=== PATIENT | male | born 1930 | race Caucasian/White ===

== ENCOUNTER 2016-09-05 10:43 | Inpatient (IN) | payer MEDICARE, BC ==
--- NOTE | ~2016-09-05 | IDS ---
Interim Discharge Summary [facility] [address] [place]. [address] NAME: REY MAIER : 32 STATUS : ADM IN [facility]#: [id number] AGE: 86 ADM/REG DATE : 09/05/16 MR#: [id number] REPORT SERV DATE: 09/10/16 DICTATED BY: KAITLIN GRANDA DATE: 09/10/16 REPORT STATUS : Draft TRANSCRIBED BY: MODKatherin DATE: 09/10/16 ADMISSION DATE: 09/05/2016 DISCHARGE DATE: REASON FOR ADMISSION: Generalized weakness and atrial fibrillation with RVR. HISTORY OF PRESENT ILLNESS: Please refer to Dr. Gutierrez's history and physical dated 09/05 for complete details regarding the patient's admission. In brief, the patient was admitted to the hospitalist service for management of his atrial fibrillation with RVR and generalized weakness and acute kidney injury. HOSPITAL COURSE: Several issues were addressed. 1. Atrial fibrillation with RVR. The patient presented with atrial fibrillation with RVR. Dr. Fernandez who was the patient's outpatient meat inspector was consulted and had Dr. Phillips perform a PAULINE cardioversion the following day. The PAULINE showed no evidence of left atrial thrombus, EF of 50%. 200 joules of synchronized cardioversion restored and that was successful cardioversion. The following day, the patient went back into atrial fibrillation with a mildly elevated heart rate and was started on IV amiodarone drip per Dr. Fernandez and he continues to be on IV amiodarone. He is currently in sinus rhythm. 2. Strep mitis bacteremia, likely secondary to endocarditis. The patient had presented with a normal procalcitonin, a normal white blood cell count, no fever, and surprisingly had positive blood cultures that were obtained from the ER. The preliminary blood culture came back after 24 hours which was quite surprising as the patient did not exhibit any signs or symptoms of infection. He was monitored until the blood cultures came back as being strep. Microbiology felt that this was secondary to Strep viridans. We finally got the final culture on the or . Given the findings of Strep viridans, I was concerned for a cardiac versus a GI source and discussing with Dr. Fernandez when the patient had a PAULINE cardioversion, there was no obvious sign for endocarditis. However, it was something that was not anticipated being discovered during the cardioversion. I repeated the CT scan with IV contrast as the patient had this vague abdominal pain. The CT scan with IV contrast did not demonstrate any GI infection for the strep bacteremia. The patient was started on vancomycin and Rocephin on day 2, when the prelim came back as being positive for gram positive cocci. Given his Strep mitis bacteremia, Dr. Chacon was consulted to help identify the source. The patient had a repeated PAULINE done at the time of this dictation on 09/10/2016. On careful assessment of the mitral prosthesis, there appears to be 0.6 x 0.6 cm mobile echodensity along the anterior aspect of the struts possibly concerning for an atypical vegetation. No evidence of an abscess in the aorta mitral continuity or periaortic abscess either. Awaiting for Dr. Chacon's final recommendations. If he does not feel like this is the source, then we will need to consider scanning his back as the patient has had some chronic back pain, but I suspect that this is the source of the infection and the patient does have endocarditis causing his bacteremia. If that is the case, he will likely need to have long-term IV antibiotics. He already has a PICC line and he is on approximately day 4 of vancomycin and Rocephin. 3. Acute hypoxic respiratory failure. The patient presented to the hospital without the Interim Discharge Summary [address] [address] NAME: REY MAIER : 32 STATUS : ADM IN [facility]#: [id number] AGE: 86 ADM/REG DATE : 09/05/16 MR#: [id number] REPORT SERV DATE: 09/10/16 DICTATED BY: KAITLIN GRANDA DATE: 09/10/16 REPORT STATUS : Draft TRANSCRIBED BY: MODL DATE: 09/10/16 need of oxygen. After his cardioversion on the second day, he was brought back to the room with about 2 L of oxygen status post procedure. He had a pretty significant upper airway congestion with cough. That night, the patient went into respiratory distress and was placed on 15 L of nasal cannula and alternating between that and BiPAP. ABG on the showed a pO2 of 63 on 100% FiO2. Repeat chest x-ray was obtained on the which showed increased right basilar consolidation what appears to be some new elevation of the right hemidiaphragm. However, it was not significantly different from the chest x-ray done in the emergency room. His BNP had actually improved and it did not feel like at the time that his hypoxic failure was likely secondary to volume overload, but maybe possibly secondary to aspiration. His cough had improved throughout the hospitalization and his hypoxic failure has also improved. He is currently now weaned down to about 4 L of nasal cannula at which he is saturating 90%. Torsemide was added on the third day of admission after he went into respiratory distress. He is tolerating that medication well. We will obtain a CT scan of his chest without contrast to evaluate any pleural effusion or possible aspiration as the patient still is requiring significant oxygen. 4. Generalized weakness. The patient had a history of breaking his ankle a while ago and he did occupational therapy very well at [facility]. He was discharged home with home PT and had been doing fairly well with his walker, but has had this generalized weakness for the past couple weeks and becoming more debilitated, which could be secondary to his back pain versus his bacteremia. Physical Therapy had evaluated the patient and recommended rehab. [facility] has been re-contacted as this is the patient's preference and they are continuing to follow. 5. Chronic back pain. The patient has had significant pain for which he was on low-dose hydrocodone at home. He has not had any significant imaging specifically for his back. However, the CT scan of his abdomen shows some compression deformity of the superior endplate of L2 which is stable. May need to consider further imaging for spine specifically if Dr. Chacon does not feel like this is endocarditis as this could be a potential source of infection. He does have a pacemaker and it is unclear if it is MRI compatible. His pacemaker was placed on 01/05/[address] Jose Serrano and it is a [employer] model VEDR01 with serial #[id number]. 6. The patient is a full code. INTERIM DIAGNOSES: Acute hypoxic respiratory failure, Streptococcus mitis bacteremia possibly secondary to endocarditis, atrial fibrillation with rapid ventricular response, chronic back pain, generalized weakness, cough, benign prostatic hypertrophy. PROCEDURES: Include consultation with Dr. Antonio Chacon, consultation with Dr. Fernandez, PAULINE cardioversion, repeat PAULINE looking for endocarditis, chest x-ray, CT scan of the abdomen and pelvis with IV contrast, CT scan of the abdomen and pelvis without contrast, CT scan of the brain without contrast. DISPOSITION: The patient is being discharged to a rehab facility with possible long-term IV antibiotics in the next couple of days. The patient will need to have rate controlled with oral medications and off the IV immune drip which Dr. Fernandez is managing. Interim Discharge Summary [place] [place] [address] [place]. [address] NAME: REY MAIER : 32 STATUS : ADM IN PAT#: [id number] AGE: 86 ADM/REG DATE : 09/05/16 MR#: [id number] REPORT SERV DATE: 09/10/16 DICTATED BY: KAITLIN GRANDA DATE: 09/10/16 REPORT STATUS : Draft TRANSCRIBED BY: VICKI DATE: 09/10/16 NIRALI/VICKI Kaitlin Granda MD / [id number] CC: MD Sofya Berger, Ino Fernandez MD
--- NOTE | ~2016-09-05 | DS ---
Discharge Summary [facility] [address] [place]. [address] NAME: REY MAIER : 32 STATUS : DIS IN PAT#: [id number] AGE: 86 ADM/REG DATE : 09/05/16 MR#: [id number] REPORT SERV DATE: 09/20/16 DICTATED BY: ABNER JIMENEZ DATE: 09/19/16 REPORT STATUS : Draft TRANSCRIBED BY: VICKI DATE: 09/19/16 ADMISSION DATE: 09/05/2016 DISCHARGE DATE: 09/18/2016 CONSULT: 1. Dr. Chacon for ID. 2. Dr. Deangelo Fernandez for Cardiology. REASON FOR ADMISSION: Generalized weakness. Please refer to admission note by Dr. Gutierrez on 09/05/2016. Please refer to interim discharge by Dr. Giuliano Granda on 09/10/2014. The patient was initially admitted for generalized weakness. HISTORY OF HOSPITAL STAY: An 86-year-old white male with past medical history of hypertension; coronary artery disease; chronic atrial fibrillation, status post cardioversion/ablation with pacemaker; history of mitral valve repair, presenting with generalized weakness. Initially, the patient was found to be in atrial fibrillation with RVR. Cardiology was consulted and the patient was cardioverted. Unfortunately, there was a questionable endocarditis. Infectious Disease was called in. The patient was growing Strep mitis bacteremia, possible cause of the endocarditis. Nonetheless, the patient was suffering also from acute hypoxic respiratory failure. The patient required extensive suction. Unfortunately, the patient was having not only issues from a respiratory standpoint, but at the same time, the patient was having issues of wanting to go home. Discussions revolved around palliative care since the patient was deteriorating quite rapidly with frequent oxygen desats when the patient could not get rid of his oral secretions. Eventually, the family was agreeable to hospice and as the preparation was underway to get the patient home with hospice, the patient . DIAGNOSES UPON DISCHARGE: 1. Generalized weakness secondary to atrial fibrillation with rapid ventricular response. 2. Atrial fibrillation with rapid ventricular response. 3. Bacteremia secondary to Streptococcus mitis. 4. Questionable endocarditis secondary to Streptococcus mitis bacteremia. 5. Acute hypoxic respiratory failure. 6. Hypertension. 7. Coronary artery disease. GUEVARA/VICKI Abner Jimenez MD Discharge Summary [address] [place]. [address] NAME: REY MAIER : 32 STATUS : DIS IN PAT#: [id number] AGE: 86 ADM/REG DATE : 09/05/16 MR#: [id number] REPORT SERV DATE: 09/20/16 DICTATED BY: ABNER JIMENEZ DATE: 09/19/16 REPORT STATUS : Draft TRANSCRIBED BY: SAMANTHAL DATE: 09/19/16 / [id number] CC: MD Ino Calle M.D.
--- NOTE | ~2016-09-05 | HP ---
History And Physical [place] [id number] [facility] [place]. [address] NAME: REY MAIER : 32 STATUS : ADM IN [facility]#: [id number] AGE: 86 ADM/REG DATE : 09/05/16 MR#: [id number] REPORT SERV DATE: 09/05/16 DICTATED BY: TOM LOVE DATE: 09/05/16 REPORT STATUS : Draft TRANSCRIBED BY: VICKI DATE: 09/05/16 DATE OF ADMISSION: 09/05/2016 CHIEF COMPLAINT: Generalized weakness. HISTORY OF PRESENT ILLNESS: This is an 86-year-old gentleman with medical history significant for a chronic atrial fibrillation status post cardioversion and ablation with a pacemaker placement, coronary artery disease, mitral valve repair on chronic anticoagulation with warfarin, chronic back pain, who presented to the hospital with complaints of generalized weakness. The patient reports progressive generalized weakness, which started several months ago. He reported that he had a ground-level fall in May and sustained a left ankle malleolus fracture. He was managed conservatively with a CAM walker boot and was subsequently discharged to subacute rehab. The patient reported that he completed subacute rehab and was subsequently discharged home. He was doing fairly well, however, noticed progressive worsening generalized weakness over the past 2 months. There is associated significant reduced appetite, reduced p.o. intake as well as significant weight loss, which was attributed to decreased p.o. intake. Family members noted that the patient has been having frequent urination in the last two weeks. There is associated lower abdominal pain, most severe in the low right abdominal quadrant. There is also associated urgency. There is also associated low-grade fevers by the family, the patient's temperature has been running in the low in 99.9 to 100 at home prior to presentation. Family members also noted that the patient has had progressive worsening distended abdomen without any significant abdominal pain. Per the family members prior to presentation this morning, the patient was in the bathroom having a bowel movement where they noted that the patient was significantly weak and was unable to get on his walker, and hence the family members decided to bring him to the ER for further evaluation. On arrival at the ER, the patient was noted to be in AFib with RVR, was given an IV metoprolol 5 mg, heart rate went down from 130s to the low 100s, and remained stable in the 100s. There is no reported history of loss of consciousness. No associated presyncope or syncopal episodes. No aphasia. No reported on memory loss or unusual or weakness of any part of the extremities. PAST MEDICAL HISTORY: 1. Hypertension. 2. Coronary artery disease. 3. Chronic atrial fibrillation status post cardioversion and ablation with pacemaker placement. 4. History of mitral valve repair. PAST SURGICAL HISTORY: 1. Mitral valve repair surgery in 01/01/2013. Also noted to have a left-sided maze procedure, primary closure of a permanent foramen ovale. 2. Dual-chamber pacemaker. History And Physical [address] [place]. [address] NAME: REY MAIER : 32 STATUS : ADM IN [facility]#: [id number] AGE: 86 ADM/REG DATE : 09/05/16 MR#: [id number] REPORT SERV DATE: 09/05/16 DICTATED BY: TOM LOVE DATE: 09/05/16 REPORT STATUS : Draft TRANSCRIBED BY: VICKI DATE: 09/05/16 SOCIAL HISTORY: Denies smoking cigarettes and drinking alcohol or illicit drug use. The patient currently lives with his and they have been for 64 years. FAMILY HISTORY: Mother at the age of 92 with pneumonia. Father had lung cancer, but of congestive heart failure. There is history of a senile dementia and colon cancer in the family. ALLERGIES: ALLERGY HISTORY: REPORTED ALLERGY TO PENICILLIN. REVIEW OF SYSTEMS: NEURO: Denies headaches and seizure-like activities. HEENT: Denies any blurred vision, double visions. Denies any problem with smells, denies any anosmia, denies any difficulty swallowing food. RESPIRATORY: Denies any shortness of breath, wheezing, or cough. CARDIOVASCULAR: Denies any chest pain, presyncopal or syncopal episodes. ABDOMEN: Reports some abdominal distention with some low abdominal pain as described in the HPI. No diarrhea. No constipation. No nausea. No vomiting. No jaundice. : Reports urinary frequency as described in the HPI. No hematuria. ENDOCRINE: Reports cold intolerance, but denies any excessive weight gain. Denies any depressed mood. Denies any hair loss. LYMPHATIC SYSTEM: Denies any lymphadenopathy. HEMATOLOGY: Denies any history of bleeding disorders, easy bruises, or bleeding from any orifices. SKIN: Appears dry. Denies any skin rash or any petechiae. MUSCULOSKELETAL: Reports positive for chronic back pain and knee pains, but denies pain in any other joints. PHYSICAL EXAMINATION: VITAL SIGNS: On presentation: Blood pressure was 123/63 mmHg, pulse was 125. At the time of my evaluation, repeat blood pressure was 120/60, pulse rate was 100 beats per minute, saturating 96% on room air, respiratory rate 15. GENERAL: Appears lethargic and continues to fall asleep during my interview, able to speak in full sentences. Do not appear to be in any distress. HEENT: Normocephalic, atraumatic. Extraocular muscles intact. Pupils equal, round, and reactive, not pale, anicteric. Oral mucosa dry. NECK: Supple. No palpably enlarged thyroid gland. No JVD. CHEST: Equal expansion. No area of tenderness. Pacemaker in place. LUNGS: Clear to auscultation bilaterally. No rhonchi, no crackles. ABDOMEN: Bowel sound normoactive, distended with prominent anterior veins, not in any particular distribution. There is tenderness in the lower abdominal quadrant, most severe in the right lower abdominal quadrant. No palpably enlarged organomegaly. LOWER EXTREMITIES: Noted to have peripheral edema all the way to the ankle, +1 pulses palpable. NEURO: Awake, alert, but very sleepy, oriented x3. Strength 3/5 in lower extremities, 5/5 in upper extremities. Does continue normal reflexes. History And Physical [address] [address] NAME: REY MAIER : 32 STATUS : ADM IN [facility]#: [id number] AGE: 86 ADM/REG DATE : 09/05/16 MR#: [id number] REPORT SERV DATE: 09/05/16 DICTATED BY: TOM LOVE DATE: 09/05/16 REPORT STATUS : Draft TRANSCRIBED BY: VICKI DATE: 09/05/16 LABORATORY DATA: Chemistry: Sodium is 132, potassium 4.0, chloride 93, bicarb 28, creatinine 1.38, BUN 32, glucose 174, calcium 9.1, magnesium 2.1. Troponin less than 0.03. TSH 1.510. Hematology: WBC 9.1, hemoglobin 12.7, hematocrit 37.1, MCV 90.9, platelet 188. PT 26.6, INR 2.5. Chest x-ray. Impression: 1. Mild venous congestion with more prominent venous congestion and interstitial edema seen on prior exam, improved bibasilar atelectasis with small left pleural effusion. 2. Status post CABG, heart valve replacement, and pacemaker placement. SUMMARY: This is an 86-year-old gentleman with medical history of atrial fibrillation status post maze procedure with an ablation, with a dual-chamber pacemaker in place who presented to the hospital with complaints of generalized weakness, found to have AFib with RVR. ASSESSMENT: 1. Generalized weakness. 2. Atrial fibrillation with rapid ventricular response. 3. Acute kidney injury. 4. Abdominal distension/abdominal tenderness. 5. Coronary artery disease. 6. Hyponatremia. 7. Dehydration. PLAN: 1. Generalized weakness. Definitive etiology of generalize weakness unclear at this time. Possible differential includes physical deconditioning following ankle fracture. It is noted that per the patient's report that ankle fractures are completely healed after he followed up with orthopedic surgeon. The patient will definitely require some physical rehabilitation at the time of discharge. At the time of discharge, the patient wants to undergo physical rehabilitation at [facility]. I will contact case assistant and social media campaign manager at this time to help with the paperwork to help place the patient at rehab. In order to identify a definitive etiology for the patient's generalized weakness, we will order urinalysis to rule out a UTI. We will also consider a CT of the abdomen given abdominal distention, and also given the patient has had some history of falls at home, although no history of loss of consciousness, we will order a CT of the head, to rule out subdural hematoma. 2. Atrial fibrillation with RVR. It was noted that on presentation to the ER, the patient's EKG showed atrial fibrillation with RVR. The patient received IV metoprolol with good response. The patient to be restarted back on his home dose of diltiazem BRAXTON and will continue to monitor the patient's heart rate with cardiac telemonitor. Also, the patient's INR is currently therapeutic at 2.5, we will continue the patient's home dose of anticoagulation. I will also consult the patient's primary commercial horticulture instructor to explain the sister to assist in the management of the patient's AFib with RVR. 3. Acute kidney injury. The patient's creatinine is 1.38 from a baseline of 0.9, likely related to some form of reduced p.o. intake as well as some from of dehydration, and also possibly the effect of diuretics, hydrochlorothiazide. The patient is changed to [facility] [address] [address] NAME: REY MAIER : 32 STATUS : ADM IN PAT#: [id number] AGE: 86 ADM/REG DATE : 09/05/16 MR#: [id number] REPORT SERV DATE: 09/05/16 DICTATED BY: TOM LOVE DATE: 09/05/16 REPORT STATUS : Draft TRANSCRIBED BY: VICKI DATE: 09/05/16 IV fluids of not more than 500 mL. Continue to monitor the patient's respiratory status and volume status closely. 4. Abdominal distention with abdominal pain. I will order an abdominopelvic CT to further elucidate etiology of abdominal pain and distention. 5. Hyponatremia likely related to hydrochlorothiazide. I will discontinue hydrochlorothiazide at this time. We will continue to monitor after gentle IV fluid resuscitation. 6. Coronary artery disease. The patient denies any chest pain at this point, we will continue to monitor closely. 7. Admission status, inpatient. Code status: Full code. DVT prophylaxis contraindicated. The patient is currently anticoagulated. 8. Consults: Primary commercial horticulture instructor from [employer]. LISA/VICKI Tom Love MD / [id number] CC: MD YANIQUE Berger DAVID K
--- NOTE | ~2016-09-05 | OP ---
Record Of Operation [facility] [address] [place]. [address] NAME: RYE MAIER : 32 STATUS : ADM IN [facility]#: [id number] AGE: 86 ADM/REG DATE : 09/05/16 MR#: [id number] REPORT SERV DATE: 09/10/16 DICTATED BY: DEANGELO HODGE DATE: 09/10/16 REPORT STATUS : Draft TRANSCRIBED BY: MODKatherin DATE: 09/10/16 DATE OF PROCEDURE: 09/10/2016 REASON FOR STUDY: Rule out endocarditis. PROCEDURE DESCRIPTION: All questions were answered and informed consent was obtained. Anesthesia administered sedation. Upon successful sedation, the transesophageal probe was inserted without complication. Salient echocardiographic windows were obtained, findings are below. There were no complications from the study. ECHOCARDIOGRAPHIC FINDINGS: 1. Borderline left ventricular systolic function with an estimated ejection fraction of approximately 50%. 2. Mildly enlarged right ventricle with normal systolic function. 3. Moderate left atrial enlargement. 4. Mild tricuspid regurgitation on color Doppler assessment. 5. Permanent pacemaker leads noted in the right atrium and the right ventricle, without vegetation. 6. Chiari network (normal variant) noted in the right atrium. 7. Status post mitral bioprosthesis implantation, which is well seated. However, on careful assessment of the mitral prosthesis, there appears to be a 0.6 x 0.6 cm mobile echodensity along the anterior aspect of the struts, possibly concerning for an atypical vegetation. There was no evidence of an abscess in the aortomitral continuity or periaortic abscess either. 8. Color Doppler assessment demonstrates mild prosthesis regurgitation as well as mild paravalvular regurgitation along the anterior aspect of the prosthetic valve. Again, the valve itself appears to be well seated in general. 9. No vegetation noted on the tricuspid valve, aortic valve, or pulmonic valve in visualized windows. VR/MODL Deangelo Hodge MD / [id number] CC: MD Ino Berger M.D.
--- NOTE | ~2016-09-05 | OP ---
Record Of Operation [facility] [place]. [address] NAME: REY MAIER : 32 STATUS : ADM IN [facility]#: [id number] AGE: 86 ADM/REG DATE : 09/05/16 MR#: [id number] REPORT SERV DATE: 09/12/16 DICTATED BY: TACOS POLLACK DATE: 09/12/16 REPORT STATUS : Draft TRANSCRIBED BY: MODL DATE: 09/12/16 DATE OF PROCEDURE: PROCEDURE PERFORMED: Oroendotracheal intubation. INDICATIONS: For impending respiratory failure with increased work of breathing, respiratory rate of 50. The patient received 10 mL of IV propofol. Using GlideScope #4 blade, we were able to directly visualize the vocal cords, which were midline with some dried white secretions. We advanced a size 8 oroendotracheal tube without difficulty and secured in place. There was good color change on an end-tidal CO2 indicator. Good auscultation of breath sounds bilaterally. Good fogging with bagging and chest radiograph is pending. IMPRESSION: Successful oroendotracheal intubation for respiratory failure. BRIANDA/VICKI aTcos Pollack M.D. / [id number] CC: Bryan Turner M.D.
--- NOTE | ~2016-09-05 | CN ---
Consultation Report [facility] [address] [place]. [address] NAME: REY AVINA : 34 STATUS : ADM IN [facility]#: [id number] AGE: 86 ADM/REG DATE : 09/05/16 MR#: [id number] REPORT SERV DATE: 09/05/16 DICTATED BY: DEANGELO HODGE DATE: 09/05/16 REPORT STATUS : Draft TRANSCRIBED BY: MODL DATE: 09/05/16 CONSULTATION DATE OF CONSULTATION: 09/05/2016 REASON FOR CONSULTATION: Atrial fibrillation with RVR. HISTORY OF PRESENT ILLNESS: Mr. Avina is an 86-year-old gentleman, well known to me with a history of paroxysmal atrial fibrillation/atrial flutter, on Juntoven, status post multiple cardioversions in the past; sick sinus syndrome, status post permanent pacemaker; CAD, status post one-vessel CABG (2012); hypertension; hyperlipidemia; and borderline LV function, EF 50%, who presents to [facility] today with nonspecified complaints of generalized weakness that has been progressive over the past several weeks in the setting of decreased p.o. intake. He is declining to provide any history at this time; therefore, all history is provided by family at the bedside. They state that he has been having progressive weakness and difficulty transferring over the past several weeks without clear trigger. He has not had any chest pains, pressures, dizziness, or loss of consciousness that they are aware of. He has been taking his medicines without any issue. He has had bouts of urinary frequency that have been intermittent over the past several weeks as well. ALLERGIES: PENICILLIN AND NEOMYCIN. FAMILY HISTORY: Negative for premature cardiovascular disease. SOCIAL HISTORY: Denies actively drinking alcohol, smoking, or doing drugs. PAST MEDICAL HISTORY: As above. HOME MEDICATIONS: 1. Tylenol. 2. Dilt ER 180 mg p.o. daily. 3. Flonase. 4. HCTZ. 5. Multivitamin. 6. Potassium. 7. Coumadin. 8. Flomax. PHYSICAL EXAMINATION: VITAL SIGNS: Blood pressure 123/63, pulse 110, O2 of 96% on nasal cannula. GENERAL: Disinterested/frustrated, otherwise no acute distress and well developed, well nourished. NEURO: Awake, alert and oriented x3; no focal deficits, appropriate mood. HEENT: Moist mucous membranes, anicteric sclerae, no nasal discharge. Consultation Report [facility] [address] [place]. [address] NAME: REY AVINA : 32 STATUS : ADM IN PAT#: [id number] AGE: 86 ADM/REG DATE : 09/05/16 MR#: [id number] REPORT SERV DATE: 09/05/16 DICTATED BY: DEANGELO HODGE DATE: 09/05/16 REPORT STATUS : Draft TRANSCRIBED BY: VICKI DATE: 09/05/16 NECK: No JVD, no carotid bruit. LUNGS: Clear to auscultation bilaterally, no wheezes, rales or rhonchi. CARDIAC: Irregularly irregular. A 2/6 systolic murmur at the left sternal border. No rubs or gallops. ABD: Soft, non-tender, non-distended, no rebound or guarding. EXTREMITIES: 1 to 2+ pitting edema in his lower extremities bilaterally, warm otherwise with diminished pulses in his radial region bilaterally. SKIN: Warm, dry and intact; no rash. PERTINENT TEST FINDINGS: Chest x-ray with improved interstitial edema when compared to May chest x-ray. Potassium 4.0, creatinine 1.4. Troponin 0.03. TSH 1.5. White blood cell count 9.9, hemoglobin 12.7. EKG with atrial fibrillation with RVR. Telemetry, atrial fibrillation with RVR in the 110s. IMPRESSION AND PLAN: Mr. Avina is an 86-year-old gentleman with an established history of atrial arrhythmias (atrial fibrillation and atrial flutter), status post multiple cardioversions; sick sinus syndrome, status post pacemaker; and coronary artery disease, status post one-vessel CABG, who presents to [facility] with nonspecified symptoms of unclear etiology, incidentally found to have mild atrial fibrillation with rapid ventricular response. I recommend that we continue his Jantoven and work up his nonspecified symptoms as per the primary team. I will start him on the amiodarone loading dose of 400 mg p.o. t.i.d. for additional suppressive effect going forward given his recurrent arrhythmias. We will schedule him for a PAULINE and cardioversion tomorrow morning given that I am uncertain as to whether he has been on uninterrupted anticoagulation for the past four to six weeks. I do not believe that this is the primary reason for his progressive symptoms over the past many weeks, and it will be important for the primary team to work him up for other noncardiac causes. VR/MODL Deangelo Hodge MD / [id number] CC: MD Ino Berger M.D.
--- NOTE | ~2016-09-05 | OP ---
Record Of Operation [facility] [address] [place]. [address] NAME: REY MAIER : 34 STATUS : ADM IN PAT#: [id number] AGE: 86 ADM/REG DATE : 09/05/16 MR#: [id number] REPORT SERV DATE: 09/06/16 DICTATED BY: DAGOBERTO ALAN DATE: 09/06/16 REPORT STATUS : Draft TRANSCRIBED BY: VICKI DATE: 09/06/16 DATE OF PROCEDURE: PAULINE-GUIDED CARDIOVERSION This is an 86-year-old gentleman with failure to thrive, shortness of breath, and atrial fibrillation who has been on chronic anticoagulation with Coumadin. His appendage has been ligated during bypass surgery in the past. He is also status post mitral valve repair. His INR today was 3.3. I have been asked to do PAULINE-guided cardioversion by Dr. Fernandez. Risks and benefits explained to the patient. He agreed to proceed. He was sedated with propofol per Anesthesia. He was intubated without difficulties. No complications. Due to transient hypotension, he was given Germain-Synephrine during procedure by anesthesiologist. The patient recovered well including blood pressure. FINDINGS: 1. No evidence of left atrial thrombus. There is spontaneous echo contrast noted in left atrium, however. The left atrial appendage was poorly visualized but has been surgically ligated during prior bypass surgery. 2. Moderate left atrial enlargement. 3. Normal LV size with normal systolic function. Estimated ejection fraction 50%. 4. Normal RV size and systolic function. 5. Mitral valve status post repair with some mildly restricted leaflet motion opening. Mild residual mitral valve regurgitation noted. 6. Tricuspid opens adequately. There is mild to moderate tricuspid valve regurgitation along the pacemaker wire. Grossly normal pulmonic valve. 7. Aortic valve is sclerotic, tricuspid with trace regurgitation. 8. 200 joules of synchronized cardioversion restored. Normal sinus rhythm. The patient went to AV paced rhythm. Findings were confirmed with the [employer] rep. The patient recovered well. CONCLUSION: Successful PAULINE guided cardioversion from atrial fibrillation to normal sinus rhythm. DEBBIE/VICKI Dagoberto Alan M.D. / [id number] CC: MD Ino Berger M.D.
--- NOTE | ~2016-09-05 | CN ---
Consultation Report [facility] [address] [place]. [address] NAME: REY MAIER : 32 STATUS : ADM IN [facility]#: [id number] AGE: 86 ADM/REG DATE : 09/05/16 MR#: [id number] REPORT SERV DATE: 09/09/16 DICTATED BY: MARSHA CHACON DATE: 09/09/16 REPORT STATUS : Draft TRANSCRIBED BY: MODL DATE: 09/09/16 INFECTIOUS DISEASE CONSULTATION DATE OF CONSULTATION: 09/09/2016 REASON FOR CONSULTATION: Positive blood cultures. HISTORY OF PRESENT ILLNESS: This is an 86-year-old man with a past medical history notable for atrial fibrillation, coronary artery disease, sick sinus syndrome for which he has a permanent pacemaker, and mitral valve repair at the time of his coronary artery bypass graft surgery in 2012. The patient suffered a left ankle fracture in May and he was treated with a nonweightbearing boot for eight weeks. He was in the hospital here in May and then transferred to [facility] for rehab and then went home on 06/20. Over the past couple of months since then, he has just kind a not been doing as well in general. He has had generalized weakness and poor appetite. He has also developed a new low back pain which caused him to sleep in a recliner. On 09/03/2016, he was found to have a temperature of 99.2, and the following day, it was 99.6, the next morning his temperature was 99.9, and for all these reasons, he presented to the emergency department at [facility] on the morning of 09/05/2016 and was found to be in atrial fibrillation with rapid ventricular response/rapid ventricular rate. His white blood cell count was 9.9, and his temperatures were initially normal here in the hospital. His initial procalcitonin was less than 0.05, but repeat later in the day was 0.23. The patient underwent a workup which included blood cultures, negative urinalysis, negative chest x-ray, and a CT scan of the brain without IV contrast which showed no acute findings. A CT scan of the abdomen and pelvis was also done without IV contrast because of some complaints of abdominal distention and pain, and this showed mild diverticulosis without diverticulitis and a minor 10% to 15% loss of the height of the superior L2 vertebra compared to 06/02/2016 CT scan. The patient the following day underwent cardioversion which included transesophageal echo done by Dr. Phillips. The patient was successfully cardioverted into sinus rhythm. The PAULINE report is reviewed. No valvular vegetations were noted. There was mild mitral valve regurgitation and [id number] tricuspid regurgitation along the pacemaker wire. The aortic valve was sclerotic and tricuspid with trace regurgitation. The next day, the patient spiked the fever to 103 and developed bandemia and respiratory distress such that he had to be placed on BiPAP. Repeat CT scan of the abdomen and pelvis in the lung bases confirmed new right-sided consolidation changes, and the patient's blood cultures also returned positive from admission for streptococci. He was started on vancomycin and ceftriaxone. Since then, his respiratory status has improved over the past 48 hours. He is on nasal cannula oxygen now and breathing better. He also has defervesced. His bandemia has resolved. His chief complaint continues to be his low back pain along with a sensation of urinary urgency without evidence of significant postvoid residuals I believe on bedside scanning. The patient also does have some shortness of breath although not much in the way of cough. The patient denies any recent other infections. He specifically denies any dental problems, skin, or soft tissue infections. Consultation Report [place] [id number] [facility] [place]. [address] NAME: REY MAIER : 34 STATUS : ADM IN [facility]#: [id number] AGE: 86 ADM/REG DATE : 09/05/16 MR#: [id number] REPORT SERV DATE: 09/09/16 DICTATED BY: MARSHA CHACON DATE: 09/09/16 REPORT STATUS : Draft TRANSCRIBED BY: VICKI DATE: 09/09/16 PAST MEDICAL HISTORY: As outlined above. In addition, he has a history of hyperlipidemia. The mitral valve repair in 12/2012 was done because of severe mitral regurgitation. This also included a left-sided maze procedure and primary closure of a patent foramen ovale. He has also had tonsillectomy and bilateral inguinal hernia repair and cataract surgery. ALLERGIES: PENICILLIN CAUSES A RASH. HE ALSO CANNOT TAKE NEOMYCIN, AND HE IS INTOLERANT DILTIAZEM. PRESENT MEDICATIONS: In addition to vancomycin and ceftriaxone include Cardizem CD, folic acid, multivitamins, Flomax, Demadex, Coumadin, and amiodarone. SOCIAL HISTORY: The patient quit smoking over 30 years ago. He lives with his of many years who is in the room with him along with his daughter and [id number]. FAMILY HISTORY: Really noncontributory but notable for lung cancer and congestive heart failure in his father. REVIEW OF SYSTEMS: As outlined above. In addition, no significant headache. No nausea, vomiting, or diarrhea. No particular joint complaints. No easy bleeding or bruising. PHYSICAL EXAMINATION: VITAL SIGNS: The patient weighs 99 kg, presently afebrile, blood pressure 125/60 and it did get as low as 90/47 on 09/07/2016, pulse 75, respiratory rate 16 to 18, and oxygen saturation 95% on 12 L of oxygen. GENERAL: He is alert, somewhat hard of hearing. No acute distress. He is answers questions appropriately. HEAD AND NECK: Extraocular movements are intact. Conjunctivae show no petechiae. Oral cavity is clear. Dentition appears to be in pretty good repair. Neck is supple. LUNGS: Somewhat diminished breath sounds at the bases, but I do not hear any crackles though. BACK: Without significant tenderness to palpation over the spine. CARDIAC: Regular rate and rhythm. Normal S1, S2 with a soft systolic murmur at the left sternal border. ABDOMEN: Soft and nontender. No masses appreciated. Nondistended. EXTREMITIES: No stigmata of endocarditis. Trace lower extremity edema. He has a PICC line in his arm covered by dressing. The patient has a pacemaker without overlying inflammatory changes on his chest. LABORATORY STUDIES: White blood cell count today 6.5, hemoglobin 11, platelets 192. creatinine 0.82, albumin 1.7. Liver function tests normal. Blood gas today shows pH 7.52, pCO2 of 42, pO2 of 96. Procalcitonin on 09/07/2016 is 0.14. Admission urinalysis is negative. Blood cultures on admission: Viridans strep (mitis/oralis). Sensitivity testing not successful. Consultation Report [address] [place]. [address] NAME: REY MAIER : 32 STATUS : ADM IN [facility]#: [id number] AGE: 86 ADM/REG DATE : 09/05/16 MR#: [id number] REPORT SERV DATE: 09/09/16 DICTATED BY: MARSHA CHACON DATE: 09/09/16 REPORT STATUS : Draft TRANSCRIBED BY: MODKatherin DATE: 09/09/16 Imaging studies are as outlined above. Chest x-ray from today shows minimal improvement in the right lung base with ongoing atelectasis, left lung base. IMPRESSION: Viridans streptococcal bacteremia on admission. Given the patient's history of constitutional symptoms over the past few weeks along with low-grade fevers prior to admission, we have to be suspicious for endocarditis and/or pacemaker infection, despite the lack of findings on the transesophageal echo. In addition, the patient has this new back pain over the past six weeks or so and a new compression deformity of L2. We have to have some concern for the possibility of spine infection. Finally, the patient developed a septic picture with respiratory distress, fever, hypertension, and a new infiltrate on 09/07/2016, which could have been due to a new pneumonia including aspiration pneumonia. This has improved. PLAN: 1. For now, we will continue vancomycin and ceftriaxone. He is improving. 2. Repeat blood cultures. 3. I will discuss with Dr. Phillips whether or not repeat transesophageal echo is needed with regard to the thoroughness of the valve assessment on a PAULINE done for cardioversion purposes. 4. We will check to see if his pacemaker would allow for MRI imaging. If it will, at some point would like to get an MRI of the lumbar spine when his respiratory status is improved. /VICKI Marsha Chacon M.D. / [id number] CC: MD Ino Berger M.D. Gregory Keith Bruce, M.D.
[~2016-09-05 10:43] MED LIST: ALEVE220 MG PO; ASAB PO; BENICAR40 PO; BETAP120 PO; BETAPACE160 MG PO; BETAPACE80 PO; CARDCD180 PO; CARDCD240 PO; CLEOCIN300 MG PO; CORDARONE PO; DILT-XR180 MG PO; FLOMAX4 PO; FLONASE NAS; HALF81 PO; HYDROCHLOROT25 MG PO; JANTOVEN1 MG PO; JANTOVEN7.5 MG PO; K-TABS10 MEQ PO; KDUR10 PO; KLOR-CON 1010 MEQ PO; KLOR-CON M2020 MEQ PO; L20 PO; L40 PO; LEVAQUIN750 MG PO; LOP25 PO; NORV10 PO; PRADAXA150 MG PO; PREDNISONE PO; QVAR80 MCG INH; SYMBICORT 160/41 INH INH; T PO; TAMBO50 PO; TAZTIA XT PO; TRIAMCINOLONE C80 GM TOP; TRIAMCINOLONE O80 GM TOP; VENTOLIN HFA INH; VICODINTAB PO; X25 PO; X5 PO; ZANTAC 150 PO; ZOCOR10 PO; [UNRECOGNIZED DRUG - CODE] EX
[2016-09-05 11:39] LABS: BASOPHILS 0.1 %; BASOPHILS ABSOLUTE 0.01 10/3/uL (0.0-0.16); EOSINOPHILS 0 %; ER CBC TAT 0 Hrs 07 Mins; HEMATOCRIT 37.1 % (40.0-51.0); HEMOGLOBIN 12.7 g/dL (13.6-17.8); IMMATURE GRANULOCYTES 0.2 %; IMMATURE GRANULOCYTES ABSOLUTE 0.02 10/3/uL (0.0-0.11); LYMPHOCYTES 10.7 %; LYMPHOCYTES ABSOLUTE 1.06 10/3/uL (0.67-4.30); MEAN CORPUS HGB CONC 34.2 g/dL (32.0-36.0); MEAN CORPUSCULAR HEMOGLOB 31.1 pg (26.0-34.0); MEAN CORPUSCULAR VOLUME 90.9 fL (80-100); MEAN PLATELET VOLUME 9.8 fL (9.2-13.0); MONOCYTES 4.9 %; MONOCYTES ABSOLUTE 0.48 10/3/uL (0.21-1.20); NEUTROPHILS 84.1 %; PLATELET COUNT 188 10/3/uL (150-400); RBC DISTRIBUTION WIDTH 13.8 % (12.0-16.0); RED CELL COUNT 4.08 10/6/uL (4.7-6.1); WHITE BLOOD CELLS 9.9 10/3/uL (4.5-10.5)
[2016-09-05 11:40] LABS: MANUAL DIFF NO %
[2016-09-05 11:46] LABS: INTERNATIONAL NORMAL RATI 2.5 UNITS (-)
[2016-09-05 11:47] LABS: PARTIAL THROMBO TIME 50.1 SEC (22.5-37.2)
[2016-09-05 11:48] LABS: PROTIME (NOT ORD) 26.6 SEC (12.0-14.5)
[2016-09-05 11:59] LABS: ER DIFF TAT 0 Hrs 27 Mins; LYMPHOCYTES 8 %; LYMPHOCYTES ABSOLUTE (CALC) 0.79 10/3/uL (0.67-4.30); MONOCYTES 11 %; MONOCYTES ABSOLUTE (CALC) 1.09 10/3/uL (0.21-1.20); NEUTROPHILS ABSOLUTE (CALC) 8.02 10/3/uL (2.02-8.40); PLATELET ESTIMATE ADQ (ADEQUATE); RBC MORPHOLOGY NORM (NORMAL); SEGMENTED NEUTROPHIL (0) 81 %; TOTAL NUCLEATED CELLS 100
[2016-09-05 12:01] LABS: CALCIUM, SERUM 9.1 MG/DL (8.5-10.4); CHEST PAIN PROFILE TAT 0 Hrs 29 Mins; CO2 (CARBON DIOXIDE) 28 MMOL/L (24-34); CREATININE 1.39 MG/DL (0.70-1.30); GFR AFRICAN AMERICAN 54 ML/MIN (>=60); GFR NON AFRICAN AMERICAN 46 ML/MIN (>=60); TROPONIN I 0.03 NG/ML (<0.05)
[2016-09-05 12:02] LABS: BUN (BLOOD UREA NITROGEN) 32 MG/DL (6-23); CHLORIDE, SERUM 93 MMOL/L (96-112); GLUCOSE, SERUM 174 MG/DL (60-99); SODIUM, SERUM 132 MMOL/L (135-148)
[2016-09-05] MEDS ORDERED: JANTOVEN5 MG PO (12:36)
[2016-09-05] MEDS ORDERED: HYDROCHLOROT25 MG PO (12:36)
[2016-09-05] MEDS ORDERED: KLOR-CON 1010 MEQ PO (12:36)
[2016-09-05] MEDS ORDERED: NORCO1 TA1 PO (12:37)
[2016-09-05] MEDS ORDERED: CARTIA XT180 MG/24 PO (12:37)
[2016-09-05] MEDS ORDERED: FLOMAX4 PO (12:37)
[2016-09-05] MEDS ORDERED: ACET500CAP PO (12:38)
[2016-09-05] MEDS ORDERED: MULTIVITAMI1 PO (12:39)
[2016-09-05] MEDS ORDERED: FLONASE NAS (12:39)
[2016-09-05] MEDS ORDERED: JANTOVEN1 MG PO (12:41)
[2016-09-05 15:53] LABS: WBC (NOT ORDERED) (RFLEX) 0 (0-5)
[2016-09-05 16:11] LABS: ASCORBIC ACID (UR NOT ORDER) 20 (NEG); BILIRUBIN, URINE NEGATIVE (NEG); ER URINALYSIS TAT 0 Hrs 18 Mins; KETONE, URINE NEGATIVE (NEG); LEUKOCYTE ESTERASE(NOT OR NEG (NEG); NITRITE (URINE) NEG (NEG)
[2016-09-05 18:36] LABS: FREE T4 1.54 NG/DL (0.76-1.46); PHOSPHORUS, SERUM 2.9 MG/DL (2.5-4.5)
[2016-09-05 19:00] LABS: B NATRIURETIC PEPTIDE (BNP) 596.7 PG/ML (< 100.0)
[2016-09-05 19:56] LABS: PROCALCITONIN 0.23 ng/mL (<0.5)
[2016-09-06 06:33] LABS: HEMOGLOBIN 11.5 g/dL (13.6-17.8); INTERNATIONAL NORMAL RATI 3.3 UNITS (-); MEAN CORPUS HGB CONC 33.8 g/dL (32.0-36.0); MEAN CORPUSCULAR VOLUME 91.6 fL (80-100); PLATELET COUNT 187 10/3/uL (150-400); PROTIME (NOT ORD) 33.6 SEC (12.0-14.5); RBC DISTRIBUTION WIDTH 13.9 % (12.0-16.0); RED CELL COUNT 3.71 10/6/uL (4.7-6.1); WHITE BLOOD CELLS 9.2 10/3/uL (4.5-10.5)
[2016-09-06 06:35] LABS: MANUAL DIFF YES %
[2016-09-06 06:43] LABS: BUN (BLOOD UREA NITROGEN) 29 MG/DL (6-23); CALCIUM, SERUM 8.6 MG/DL (8.5-10.4); CHLORIDE, SERUM 96 MMOL/L (96-112); CO2 (CARBON DIOXIDE) 27 MMOL/L (24-34); CREATININE 0.99 MG/DL (0.70-1.30); GFR AFRICAN AMERICAN 81 ML/MIN (>=60); GFR NON AFRICAN AMERICAN 70 ML/MIN (>=60); PHOSPHORUS, SERUM 2.9 MG/DL (2.5-4.5); POTASSIUM, SERUM 3.9 MMOL/L (3.5-5.3); SODIUM, SERUM 134 MMOL/L (135-148); TROPONIN I 0.03 NG/ML (<0.05)
[2016-09-06 06:44] LABS: GLUCOSE, SERUM 116 MG/DL (60-99)
[2016-09-06 07:27] LABS: BAND NEUTROPHILS 7 %; LYMPHOCYTES 13 %; MONOCYTES 7 %; MONOCYTES ABSOLUTE (CALC) 0.64 10/3/uL (0.21-1.20); NEUTROPHILS ABSOLUTE (CALC) 7.36 10/3/uL (2.02-8.40); PLATELET ESTIMATE ADQ (ADEQUATE); RBC MORPHOLOGY NORM (NORMAL); SEGMENTED NEUTROPHIL (0) 73 %; TOTAL NUCLEATED CELLS 100
[2016-09-07 06:16] LABS: INTERNATIONAL NORMAL RATI 3.2 UNITS (-); PROTIME (NOT ORD) 32.3 SEC (12.0-14.5)
[2016-09-07 06:27] LABS: BE (BASE EXCESS) 5.4 MEQ/L (0 +/- 2.5); CARBOXYHEMOGLOBIN 0.3 % (0-3); DEVICE NRB; HEMOBLOGIN CONTENT 12.8 G/DL (14-18); INSTRUMENT SERIAL # 35151; METHEMOGLOBIN 0.3 % (0-3); O2 CONTENT 16.6 VOL% (18-24); OPERATOR ID 31061; PCO2 (CO2 TENSION) 34 MMHG (35-45); PO2 (O2 TENSION) 63 MMHG (79-93); SAMPLE Arterial; pH 7.53 (7.37-7.43)
[2016-09-07 09:51] LABS: HEMATOCRIT 36.7 % (40.0-51.0); HEMOGLOBIN 12.8 g/dL (13.6-17.8); MEAN CORPUS HGB CONC 34.9 g/dL (32.0-36.0); MEAN CORPUSCULAR HEMOGLOB 31.6 pg (26.0-34.0); MEAN CORPUSCULAR VOLUME 90.6 fL (80-100); MEAN PLATELET VOLUME 10.4 fL (9.2-13.0); PLATELET COUNT 210 10/3/uL (150-400); RBC DISTRIBUTION WIDTH 14.4 % (12.0-16.0); RED CELL COUNT 4.05 10/6/uL (4.7-6.1); WHITE BLOOD CELLS 7.3 10/3/uL (4.5-10.5)
[2016-09-07 09:52] LABS: MANUAL DIFF YES %
[2016-09-07 10:13] LABS: ALBUMIN 2.3 G/DL (3.5-5.0); CALCIUM, SERUM 8.8 MG/DL (8.5-10.4); CHLORIDE, SERUM 97 MMOL/L (96-112); CREATININE 1.13 MG/DL (0.70-1.30); GFR AFRICAN AMERICAN 69 ML/MIN (>=60); GFR NON AFRICAN AMERICAN 59 ML/MIN (>=60); POTASSIUM, SERUM 3.8 MMOL/L (3.5-5.3); SGOT(AST) 30 U/L (5-40); SGPT(ALT) 23 U/L (5-65); SODIUM, SERUM 137 MMOL/L (135-148); TOTAL BILIRUBIN 0.9 MG/DL (0-1.2); TOTAL PROTEIN 7.8 G/DL (6.0-8.5)
[2016-09-07 10:14] LABS: A/G RATIO 0.4 (0.7-1.9); ALKALINE PHOSPHATASE 75 U/L (45-117); BUN (BLOOD UREA NITROGEN) 23 MG/DL (6-23); CO2 (CARBON DIOXIDE) 32 MMOL/L (24-34); GLOBULIN 5.5 G/DL (2.5-4.1); GLUCOSE, SERUM 153 MG/DL (60-99)
[2016-09-07 10:41] LABS: PROCALCITONIN 0.14 ng/mL (<0.5)
[2016-09-07 10:58] LABS: BAND NEUTROPHILS 17 %; LYMPHOCYTES 11 %; MONOCYTES 7 %; MONOCYTES ABSOLUTE (CALC) 0.51 10/3/uL (0.21-1.20); NEUTROPHILS ABSOLUTE (CALC) 5.99 10/3/uL (2.02-8.40); PLATELET ESTIMATE ADQ (ADEQUATE); RBC MORPHOLOGY NORM (NORMAL); SEGMENTED NEUTROPHIL (0) 65 %; TOTAL NUCLEATED CELLS 100
[2016-09-08 05:49] LABS: BASOPHILS 0.2 %; BASOPHILS ABSOLUTE 0.01 10/3/uL (0.0-0.16); EOSINOPHILS 1.4 %; EOSINOPHILS ABSOLUTE 0.08 10/3/uL (0.0-0.53); HEMATOCRIT 29.9 % (40.0-51.0); HEMOGLOBIN 10.3 g/dL (13.6-17.8); IMMATURE GRANULOCYTES 0.2 %; IMMATURE GRANULOCYTES ABSOLUTE 0.01 10/3/uL (0.0-0.11); LYMPHOCYTES 19.8 %; LYMPHOCYTES ABSOLUTE 1.16 10/3/uL (0.67-4.30); MANUAL DIFF NO %; MEAN CORPUS HGB CONC 34.4 g/dL (32.0-36.0); MEAN CORPUSCULAR HEMOGLOB 30.9 pg (26.0-34.0); MEAN CORPUSCULAR VOLUME 89.8 fL (80-100); MEAN PLATELET VOLUME 9.9 fL (9.2-13.0); MONOCYTES 4.4 %; MONOCYTES ABSOLUTE 0.26 10/3/uL (0.21-1.20); NEUTROPHILS ABSOLUTE 4.35 10/3/uL (2.02-8.40); PLATELET COUNT 182 10/3/uL (150-400); RBC DISTRIBUTION WIDTH 14.3 % (12.0-16.0); RED CELL COUNT 3.33 10/6/uL (4.7-6.1); WHITE BLOOD CELLS 5.9 10/3/uL (4.5-10.5)
[2016-09-08 05:57] LABS: INTERNATIONAL NORMAL RATI 4.7 UNITS (-)
[2016-09-08 05:58] LABS: PROTIME (NOT ORD) 43.5 SEC (12.0-14.5)
[2016-09-08 06:09] LABS: BUN (BLOOD UREA NITROGEN) 25 MG/DL (6-23); CALCIUM, SERUM 8.2 MG/DL (8.5-10.4); CHLORIDE, SERUM 98 MMOL/L (96-112); CO2 (CARBON DIOXIDE) 29 MMOL/L (24-34); CREATININE 0.87 MG/DL (0.70-1.30); GFR AFRICAN AMERICAN 92 ML/MIN (>=60); GFR NON AFRICAN AMERICAN 79 ML/MIN (>=60); POTASSIUM, SERUM 3.6 MMOL/L (3.5-5.3); SGOT(AST) 29 U/L (5-40); SGPT(ALT) 20 U/L (5-65); SODIUM, SERUM 138 MMOL/L (135-148); TOTAL PROTEIN 6.4 G/DL (6.0-8.5)
[2016-09-08 06:10] LABS: A/G RATIO 0.4 (0.7-1.9); ALBUMIN 1.7 G/DL (3.5-5.0); ALKALINE PHOSPHATASE 60 U/L (45-117); GLOBULIN 4.7 G/DL (2.5-4.1); GLUCOSE, SERUM 117 MG/DL (60-99); PHOSPHORUS, SERUM 2.7 MG/DL (2.5-4.5); TOTAL BILIRUBIN 1.4 MG/DL (0-1.2)
[2016-09-09 04:38] LABS: BASOPHILS 0.3 %; BASOPHILS ABSOLUTE 0.02 10/3/uL (0.0-0.16); EOSINOPHILS 2.2 %; EOSINOPHILS ABSOLUTE 0.14 10/3/uL (0.0-0.53); HEMATOCRIT 32.5 % (40.0-51.0); IMMATURE GRANULOCYTES 0.3 %; IMMATURE GRANULOCYTES ABSOLUTE 0.02 10/3/uL (0.0-0.11); LYMPHOCYTES 17.3 %; LYMPHOCYTES ABSOLUTE 1.12 10/3/uL (0.67-4.30); MEAN CORPUS HGB CONC 33.8 g/dL (32.0-36.0); MEAN CORPUSCULAR HEMOGLOB 30.8 pg (26.0-34.0); MEAN PLATELET VOLUME 10.3 fL (9.2-13.0); MONOCYTES 5.4 %; MONOCYTES ABSOLUTE 0.35 10/3/uL (0.21-1.20); NEUTROPHILS 74.5 %; NEUTROPHILS ABSOLUTE 4.84 10/3/uL (2.02-8.40); PLATELET COUNT 192 10/3/uL (150-400); RBC DISTRIBUTION WIDTH 14.1 % (12.0-16.0); RED CELL COUNT 3.57 10/6/uL (4.7-6.1); WHITE BLOOD CELLS 6.5 10/3/uL (4.5-10.5)
[2016-09-09 04:39] LABS: MANUAL DIFF NO %
[2016-09-09 04:43] LABS: INTERNATIONAL NORMAL RATI 3.9 UNITS (-); PROTIME (NOT ORD) 37.8 SEC (12.0-14.5)
[2016-09-09 04:56] LABS: A/G RATIO 0.3 (0.7-1.9); ALBUMIN 1.7 G/DL (3.5-5.0); ALKALINE PHOSPHATASE 66 U/L (45-117); CALCIUM, SERUM 7.9 MG/DL (8.5-10.4); CHLORIDE, SERUM 93 MMOL/L (96-112); CO2 (CARBON DIOXIDE) 33 MMOL/L (24-34); CREATININE 0.82 MG/DL (0.70-1.30); GFR AFRICAN AMERICAN 94 ML/MIN (>=60); GFR NON AFRICAN AMERICAN 81 ML/MIN (>=60); GLOBULIN 4.9 G/DL (2.5-4.1); GLUCOSE, SERUM 119 MG/DL (60-99); PHOSPHORUS, SERUM 3.2 MG/DL (2.5-4.5); POTASSIUM, SERUM 3.5 MMOL/L (3.5-5.3); SGOT(AST) 36 U/L (5-40); SGPT(ALT) 25 U/L (5-65); SODIUM, SERUM 136 MMOL/L (135-148); TOTAL PROTEIN 6.6 G/DL (6.0-8.5)
[2016-09-09 04:58] LABS: BUN (BLOOD UREA NITROGEN) 21 MG/DL (6-23); TOTAL BILIRUBIN 0.6 MG/DL (0-1.2)
[2016-09-09 05:47] LABS: BE (BASE EXCESS) 9.2 MEQ/L (0 +/- 2.5); CARBOXYHEMOGLOBIN 0.3 % (0-3); DEVICE HFNC; HEMOBLOGIN CONTENT 11.8 G/DL (14-18); INSTRUMENT SERIAL # 35151; METHEMOGLOBIN 0.8 % (0-3); O2 CONTENT 16.1 VOL% (18-24); PCO2 (CO2 TENSION) 42 MMHG (35-45); PO2 (O2 TENSION) 96 MMHG (79-93); SAMPLE Arterial; pH 7.52 (7.37-7.43)
[2016-09-10 05:31] LABS: BASOPHILS 0.3 %; BASOPHILS ABSOLUTE 0.02 10/3/uL (0.0-0.16); EOSINOPHILS 1.9 %; EOSINOPHILS ABSOLUTE 0.12 10/3/uL (0.0-0.53); HEMATOCRIT 32.5 % (40.0-51.0); HEMOGLOBIN 11.2 g/dL (13.6-17.8); IMMATURE GRANULOCYTES 0.5 %; IMMATURE GRANULOCYTES ABSOLUTE 0.03 10/3/uL (0.0-0.11); LYMPHOCYTES 15.9 %; LYMPHOCYTES ABSOLUTE 0.99 10/3/uL (0.67-4.30); MEAN CORPUS HGB CONC 34.5 g/dL (32.0-36.0); MEAN CORPUSCULAR HEMOGLOB 31.3 pg (26.0-34.0); MEAN CORPUSCULAR VOLUME 90.8 fL (80-100); MEAN PLATELET VOLUME 10.3 fL (9.2-13.0); MONOCYTES 5.6 %; MONOCYTES ABSOLUTE 0.35 10/3/uL (0.21-1.20); NEUTROPHILS 75.8 %; NEUTROPHILS ABSOLUTE 4.72 10/3/uL (2.02-8.40); PLATELET COUNT 220 10/3/uL (150-400); RED CELL COUNT 3.58 10/6/uL (4.7-6.1); WHITE BLOOD CELLS 6.2 10/3/uL (4.5-10.5)
[2016-09-10 05:34] LABS: MANUAL DIFF NO %
[2016-09-10 05:38] LABS: INTERNATIONAL NORMAL RATI 3.1 UNITS (-); PARTIAL THROMBO TIME 69.2 SEC (22.5-37.2)
[2016-09-10 05:40] LABS: PROTIME (NOT ORD) 31.3 SEC (12.0-14.5)
[2016-09-10 05:47] LABS: A/G RATIO 0.4 (0.7-1.9); ALBUMIN 1.8 G/DL (3.5-5.0); ALKALINE PHOSPHATASE 66 U/L (45-117); BUN (BLOOD UREA NITROGEN) 21 MG/DL (6-23); CALCIUM, SERUM 8.6 MG/DL (8.5-10.4); CHLORIDE, SERUM 93 MMOL/L (96-112); CO2 (CARBON DIOXIDE) 33 MMOL/L (24-34); CREATININE 0.83 MG/DL (0.70-1.30); GFR AFRICAN AMERICAN 94 ML/MIN (>=60); GFR NON AFRICAN AMERICAN 81 ML/MIN (>=60); GLUCOSE, SERUM 127 MG/DL (60-99); PHOSPHORUS, SERUM 3.2 MG/DL (2.5-4.5); POTASSIUM, SERUM 3.6 MMOL/L (3.5-5.3); SGOT(AST) 36 U/L (5-40); SGPT(ALT) 28 U/L (5-65); SODIUM, SERUM 135 MMOL/L (135-148); TOTAL BILIRUBIN 0.6 MG/DL (0-1.2); TOTAL PROTEIN 6.8 G/DL (6.0-8.5)
[2016-09-11 06:57] LABS: BASOPHILS 0.5 %; BASOPHILS ABSOLUTE 0.03 10/3/uL (0.0-0.16); EOSINOPHILS 1.3 %; EOSINOPHILS ABSOLUTE 0.08 10/3/uL (0.0-0.53); HEMATOCRIT 34.1 % (40.0-51.0); HEMOGLOBIN 11.6 g/dL (13.6-17.8); IMMATURE GRANULOCYTES 0.5 %; IMMATURE GRANULOCYTES ABSOLUTE 0.03 10/3/uL (0.0-0.11); LYMPHOCYTES 18.1 %; MEAN CORPUSCULAR VOLUME 91.2 fL (80-100); MEAN PLATELET VOLUME 9.8 fL (9.2-13.0); MONOCYTES 7.2 %; MONOCYTES ABSOLUTE 0.44 10/3/uL (0.21-1.20); NEUTROPHILS 72.4 %; NEUTROPHILS ABSOLUTE 4.39 10/3/uL (2.02-8.40); PLATELET COUNT 226 10/3/uL (150-400); RBC DISTRIBUTION WIDTH 14.2 % (12.0-16.0); RED CELL COUNT 3.74 10/6/uL (4.7-6.1); WHITE BLOOD CELLS 6.1 10/3/uL (4.5-10.5)
[2016-09-11 07:02] LABS: MANUAL DIFF NO %
[2016-09-11 07:05] LABS: INTERNATIONAL NORMAL RATI 3.2 UNITS (-); PROTIME (NOT ORD) 32.8 SEC (12.0-14.5)
[2016-09-11 07:16] LABS: A/G RATIO 0.4 (0.7-1.9); ALBUMIN 1.9 G/DL (3.5-5.0); ALKALINE PHOSPHATASE 69 U/L (45-117); BUN (BLOOD UREA NITROGEN) 20 MG/DL (6-23); CALCIUM, SERUM 8.8 MG/DL (8.5-10.4); CHLORIDE, SERUM 93 MMOL/L (96-112); CO2 (CARBON DIOXIDE) 32 MMOL/L (24-34); CREATININE 0.95 MG/DL (0.70-1.30); GFR AFRICAN AMERICAN 85 ML/MIN (>=60); GFR NON AFRICAN AMERICAN 73 ML/MIN (>=60); GLOBULIN 5.2 G/DL (2.5-4.1); GLUCOSE, SERUM 138 MG/DL (60-99); POTASSIUM, SERUM 3.6 MMOL/L (3.5-5.3); SGOT(AST) 28 U/L (5-40); SGPT(ALT) 22 U/L (5-65); SODIUM, SERUM 134 MMOL/L (135-148); TOTAL BILIRUBIN 0.6 MG/DL (0-1.2); TOTAL PROTEIN 7.1 G/DL (6.0-8.5)
[2016-09-11 18:46] LABS: ASCORBIC ACID (UR NOT ORDER) NEG (NEG); BILIRUBIN, URINE NEGATIVE (NEG); KETONE, URINE NEGATIVE (NEG); LEUKOCYTE ESTERASE(NOT OR NEG (NEG); WBC (NOT ORDERED) (RFLEX) < 1 (0-5)
[2016-09-11 19:21] LABS: ALLENS TEST Pos; BE (BASE EXCESS) 9.7 MEQ/L (0 +/- 2.5); DEVICE NC; HCO3 (ACTUAL BICARBONATE) 33.1 MEQ/L (23-27); HEMOBLOGIN CONTENT 12.5 G/DL (14-18); INSTRUMENT SERIAL # 35151; METHEMOGLOBIN 0.5 % (0-3); O2 CONTENT 16.2 VOL% (18-24); OPERATOR ID 17370; PCO2 (CO2 TENSION) 40 MMHG (35-45); PO2 (O2 TENSION) 64 MMHG (79-93); SAMPLE Arterial; pH 7.54 (7.37-7.43)
[2016-09-12 05:49] LABS: BASOPHILS 0.3 %; BASOPHILS ABSOLUTE 0.02 10/3/uL (0.0-0.16); EOSINOPHILS 1.9 %; EOSINOPHILS ABSOLUTE 0.12 10/3/uL (0.0-0.53); HEMATOCRIT 32.8 % (40.0-51.0); HEMOGLOBIN 11.1 g/dL (13.6-17.8); IMMATURE GRANULOCYTES 0.6 %; IMMATURE GRANULOCYTES ABSOLUTE 0.04 10/3/uL (0.0-0.11); LYMPHOCYTES 16.5 %; LYMPHOCYTES ABSOLUTE 1.05 10/3/uL (0.67-4.30); MEAN CORPUS HGB CONC 33.8 g/dL (32.0-36.0); MEAN CORPUSCULAR HEMOGLOB 30.6 pg (26.0-34.0); MEAN CORPUSCULAR VOLUME 90.4 fL (80-100); MEAN PLATELET VOLUME 10.4 fL (9.2-13.0); MONOCYTES 8.3 %; MONOCYTES ABSOLUTE 0.53 10/3/uL (0.21-1.20); NEUTROPHILS 72.4 %; NEUTROPHILS ABSOLUTE 4.59 10/3/uL (2.02-8.40); PLATELET COUNT 222 10/3/uL (150-400); RBC DISTRIBUTION WIDTH 14.4 % (12.0-16.0); RED CELL COUNT 3.63 10/6/uL (4.7-6.1); WHITE BLOOD CELLS 6.4 10/3/uL (4.5-10.5)
[2016-09-12 05:52] LABS: MANUAL DIFF NO %
[2016-09-12 05:53] LABS: CALCIUM IONIZED 4.61 MG/DL (3.80-4.80)
[2016-09-12 05:59] LABS: PROTIME (NOT ORD) 30.5 SEC (12.0-14.5)
[2016-09-12 06:06] LABS: A/G RATIO 0.4 (0.7-1.9); ALBUMIN 1.9 G/DL (3.5-5.0); ALKALINE PHOSPHATASE 69 U/L (45-117); BUN (BLOOD UREA NITROGEN) 25 MG/DL (6-23); CALCIUM, SERUM 8.6 MG/DL (8.5-10.4); CHLORIDE, SERUM 94 MMOL/L (96-112); CO2 (CARBON DIOXIDE) 34 MMOL/L (24-34); CREATININE 1.03 MG/DL (0.70-1.30); GFR AFRICAN AMERICAN 77 ML/MIN (>=60); GFR NON AFRICAN AMERICAN 66 ML/MIN (>=60); GLOBULIN 4.9 G/DL (2.5-4.1); GLUCOSE, SERUM 132 MG/DL (60-99); PHOSPHORUS, SERUM 2.9 MG/DL (2.5-4.5); SGOT(AST) 31 U/L (5-40); SGPT(ALT) 22 U/L (5-65); SODIUM, SERUM 137 MMOL/L (135-148); TOTAL BILIRUBIN 0.6 MG/DL (0-1.2); TOTAL PROTEIN 6.8 G/DL (6.0-8.5)
[2016-09-12 06:15] LABS: ALLENS TEST Pos; BE (BASE EXCESS) 11.4 MEQ/L (0 +/- 2.5); CARBOXYHEMOGLOBIN 0.5 % (0-3); DEVICE HFNC; HCO3 (ACTUAL BICARBONATE) 35.5 MEQ/L (23-27); HEMOBLOGIN CONTENT 9.4 G/DL (14-18); INSTRUMENT SERIAL # 8083; METHEMOGLOBIN 0.2 % (0-3); O2 CONTENT 11.5 VOL% (18-24); OPERATOR ID 35190; PCO2 (CO2 TENSION) 45 MMHG (35-45); PO2 (O2 TENSION) 51 MMHG (79-93); SAMPLE Arterial; pH 7.51 (7.37-7.43)
[2016-09-12 10:40] LABS: ALLENS TEST Pos; BE (BASE EXCESS) 10.5 MEQ/L (0 +/- 2.5); CARBOXYHEMOGLOBIN 0.5 % (0-3); HCO3 (ACTUAL BICARBONATE) 34.8 MEQ/L (23-27); HEMOBLOGIN CONTENT 12.1 G/DL (14-18); INSTRUMENT SERIAL # 8083; METHEMOGLOBIN 0.2 % (0-3); O2 CONTENT 16.4 VOL% (18-24); OPERATOR ID 13715; PCO2 (CO2 TENSION) 46 MMHG (35-45); PO2 (O2 TENSION) 84 MMHG (79-93); SAMPLE Arterial
[2016-09-12 14:09] LABS: ALLENS TEST Pos; BE (BASE EXCESS) 9.6 MEQ/L (0 +/- 2.5); CARBOXYHEMOGLOBIN 0.4 % (0-3); HCO3 (ACTUAL BICARBONATE) 30.6 MEQ/L (23-27); HEMOBLOGIN CONTENT 11.7 G/DL (14-18); INSTRUMENT SERIAL # 8083; METHEMOGLOBIN 0.1 % (0-3); MODE CMV; O2 CONTENT 16.5 VOL% (18-24); PCO2 (CO2 TENSION) 30 MMHG (35-45); PO2 (O2 TENSION) 138 MMHG (79-93); SAMPLE Arterial; TIDAL VOLUME 550 ML; pH 7.63 (7.37-7.43)
[2016-09-13 04:18] LABS: ALLENS TEST Pos; BE (BASE EXCESS) 11.9 MEQ/L (0 +/- 2.5); CARBOXYHEMOGLOBIN 0.7 % (0-3); HCO3 (ACTUAL BICARBONATE) 35.7 MEQ/L (23-27); HEMOBLOGIN CONTENT 11.2 G/DL (14-18); INSTRUMENT SERIAL # 8083; METHEMOGLOBIN 0.2 % (0-3); MODE CMV; O2 CONTENT 15.1 VOL% (18-24); PCO2 (CO2 TENSION) 43 MMHG (35-45); PO2 (O2 TENSION) 81 MMHG (79-93); SAMPLE Arterial; TIDAL VOLUME 550 ML; pH 7.54 (7.37-7.43)
[2016-09-13 04:38] LABS: BASOPHILS 0.4 %; BASOPHILS ABSOLUTE 0.03 10/3/uL (0.0-0.16); EOSINOPHILS 2.4 %; EOSINOPHILS ABSOLUTE 0.18 10/3/uL (0.0-0.53); HEMATOCRIT 34.4 % (40.0-51.0); HEMOGLOBIN 11.5 g/dL (13.6-17.8); IMMATURE GRANULOCYTES 0.4 %; IMMATURE GRANULOCYTES ABSOLUTE 0.03 10/3/uL (0.0-0.11); LYMPHOCYTES 12.9 %; LYMPHOCYTES ABSOLUTE 0.96 10/3/uL (0.67-4.30); MEAN CORPUS HGB CONC 33.4 g/dL (32.0-36.0); MEAN CORPUSCULAR HEMOGLOB 30.7 pg (26.0-34.0); MEAN PLATELET VOLUME 10.1 fL (9.2-13.0); MONOCYTES 7.1 %; MONOCYTES ABSOLUTE 0.53 10/3/uL (0.21-1.20); NEUTROPHILS 76.8 %; NEUTROPHILS ABSOLUTE 5.71 10/3/uL (2.02-8.40); PLATELET COUNT 225 10/3/uL (150-400); RBC DISTRIBUTION WIDTH 14.5 % (12.0-16.0); RED CELL COUNT 3.74 10/6/uL (4.7-6.1); WHITE BLOOD CELLS 7.4 10/3/uL (4.5-10.5)
[2016-09-13 04:41] LABS: MANUAL DIFF NO %
[2016-09-13 04:46] LABS: INTERNATIONAL NORMAL RATI 2.4 UNITS (-); PROTIME (NOT ORD) 26.2 SEC (12.0-14.5)
[2016-09-13 04:56] LABS: A/G RATIO 0.3 (0.7-1.9); ALBUMIN 1.7 G/DL (3.5-5.0); ALKALINE PHOSPHATASE 63 U/L (45-117); BUN (BLOOD UREA NITROGEN) 22 MG/DL (6-23); CALCIUM, SERUM 8.6 MG/DL (8.5-10.4); CHLORIDE, SERUM 91 MMOL/L (96-112); CO2 (CARBON DIOXIDE) 34 MMOL/L (24-34); CREATININE 0.88 MG/DL (0.70-1.30); GFR AFRICAN AMERICAN 91 ML/MIN (>=60); GFR NON AFRICAN AMERICAN 79 ML/MIN (>=60); GLOBULIN 4.9 G/DL (2.5-4.1); GLUCOSE, SERUM 137 MG/DL (60-99); PHOSPHORUS, SERUM 2.5 MG/DL (2.5-4.5); POTASSIUM, SERUM 3.7 MMOL/L (3.5-5.3); SGOT(AST) 45 U/L (5-40); SGPT(ALT) 24 U/L (5-65); SODIUM, SERUM 133 MMOL/L (135-148); TOTAL BILIRUBIN 0.6 MG/DL (0-1.2); TOTAL PROTEIN 6.6 G/DL (6.0-8.5)
[2016-09-13 06:48] LABS: PROCALCITONIN 0.14 ng/mL (<0.5)
[2016-09-14 04:21] LABS: BASOPHILS 0.3 %; BASOPHILS ABSOLUTE 0.02 10/3/uL (0.0-0.16); EOSINOPHILS 1.7 %; HEMATOCRIT 32.2 % (40.0-51.0); HEMOGLOBIN 10.7 g/dL (13.6-17.8); IMMATURE GRANULOCYTES 0.8 %; IMMATURE GRANULOCYTES ABSOLUTE 0.05 10/3/uL (0.0-0.11); LYMPHOCYTES 13.9 %; LYMPHOCYTES ABSOLUTE 0.83 10/3/uL (0.67-4.30); MEAN CORPUS HGB CONC 33.2 g/dL (32.0-36.0); MEAN CORPUSCULAR HEMOGLOB 30.5 pg (26.0-34.0); MEAN CORPUSCULAR VOLUME 91.7 fL (80-100); MEAN PLATELET VOLUME 10.1 fL (9.2-13.0); MONOCYTES 7.6 %; MONOCYTES ABSOLUTE 0.45 10/3/uL (0.21-1.20); NEUTROPHILS 75.7 %; NEUTROPHILS ABSOLUTE 4.51 10/3/uL (2.02-8.40); PLATELET COUNT 203 10/3/uL (150-400); RBC DISTRIBUTION WIDTH 14.5 % (12.0-16.0); RED CELL COUNT 3.51 10/6/uL (4.7-6.1)
[2016-09-14 04:25] LABS: MANUAL DIFF NO %
[2016-09-14 04:30] LABS: INTERNATIONAL NORMAL RATI 1.8 UNITS (-)
[2016-09-14 04:33] LABS: PROTIME (NOT ORD) 20.5 SEC (12.0-14.5)
[2016-09-14 04:49] LABS: A/G RATIO 0.3 (0.7-1.9); ALBUMIN 1.6 G/DL (3.5-5.0); ALKALINE PHOSPHATASE 65 U/L (45-117); CALCIUM, SERUM 8.5 MG/DL (8.5-10.4); CHLORIDE, SERUM 90 MMOL/L (96-112); CO2 (CARBON DIOXIDE) 33 MMOL/L (24-34); CREATININE 0.95 MG/DL (0.70-1.30); GFR AFRICAN AMERICAN 85 ML/MIN (>=60); GFR NON AFRICAN AMERICAN 73 ML/MIN (>=60); GLOBULIN 4.9 G/DL (2.5-4.1); GLUCOSE, SERUM 148 MG/DL (60-99); PHOSPHORUS, SERUM 2.8 MG/DL (2.5-4.5); POTASSIUM, SERUM 3.5 MMOL/L (3.5-5.3); SGOT(AST) 34 U/L (5-40); SGPT(ALT) 20 U/L (5-65); SODIUM, SERUM 131 MMOL/L (135-148); TOTAL BILIRUBIN 0.5 MG/DL (0-1.2); TOTAL PROTEIN 6.5 G/DL (6.0-8.5)
[2016-09-14 04:56] LABS: BUN (BLOOD UREA NITROGEN) 18 MG/DL (6-23)
[2016-09-15 04:18] LABS: BE (BASE EXCESS) 4.9 MEQ/L (0 +/- 2.5); CARBOXYHEMOGLOBIN 0.5 % (0-3); HCO3 (ACTUAL BICARBONATE) 23.5 MEQ/L (23-27); INSTRUMENT SERIAL # 8083; METHEMOGLOBIN 0.2 % (0-3); PCO2 (CO2 TENSION) 21 MMHG (35-45); PO2 (O2 TENSION) 69 MMHG (79-93); pH 7.66 (7.37-7.43)
[2016-09-15 04:19] LABS: ALLENS TEST Pos; HEMOBLOGIN CONTENT 14.8 G/DL (14-18); O2 CONTENT 19.7 VOL% (18-24); OPERATOR ID 30013; SAMPLE Arterial
[2016-09-15 04:34] LABS: HEMOGLOBIN 12.4 g/dL (13.6-17.8); MEAN CORPUS HGB CONC 33.2 g/dL (32.0-36.0); MEAN CORPUSCULAR HEMOGLOB 30.6 pg (26.0-34.0); MEAN CORPUSCULAR VOLUME 92.1 fL (80-100); MEAN PLATELET VOLUME 10.4 fL (9.2-13.0); RBC DISTRIBUTION WIDTH 14.8 % (12.0-16.0); RED CELL COUNT 4.05 10/6/uL (4.7-6.1)
[2016-09-15 04:40] LABS: HEMATOCRIT 37.3 % (40.0-51.0); MANUAL DIFF YES %; PLATELET COUNT 266 10/3/uL (150-400); WHITE BLOOD CELLS 8.8 10/3/uL (4.5-10.5)
[2016-09-15 04:43] LABS: INTERNATIONAL NORMAL RATI 1.7 UNITS (-); PROTIME (NOT ORD) 19.8 SEC (12.0-14.5)
[2016-09-15 05:08] LABS: A/G RATIO 0.3 (0.7-1.9); ALBUMIN 1.9 G/DL (3.5-5.0); BUN (BLOOD UREA NITROGEN) 17 MG/DL (6-23); CALCIUM, SERUM 8.6 MG/DL (8.5-10.4); CHLORIDE, SERUM 98 MMOL/L (96-112); CREATININE 1.24 MG/DL (0.70-1.30); GFR AFRICAN AMERICAN 61 ML/MIN (>=60); GFR NON AFRICAN AMERICAN 53 ML/MIN (>=60); GLOBULIN 5.5 G/DL (2.5-4.1); GLUCOSE, SERUM 134 MG/DL (60-99); POTASSIUM, SERUM 3.6 MMOL/L (3.5-5.3); SGOT(AST) 48 U/L (5-40); SGPT(ALT) 20 U/L (5-65); SODIUM, SERUM 136 MMOL/L (135-148); TOTAL PROTEIN 7.4 G/DL (6.0-8.5)
[2016-09-15 05:15] LABS: ALKALINE PHOSPHATASE 79 U/L (45-117); CO2 (CARBON DIOXIDE) 26 MMOL/L (24-34); PHOSPHORUS, SERUM 1.9 MG/DL (2.5-4.5); TOTAL BILIRUBIN 1.2 MG/DL (0-1.2)
[2016-09-15 06:47] LABS: BAND NEUTROPHILS 10 %; IMMATURE GRANS ABSOLUTE (CALC) 0.09 10/3/uL (0.0-0.11); LYMPHOCYTES 15 %; LYMPHOCYTES ABSOLUTE (CALC) 1.32 10/3/uL (0.67-4.30); METAMYELOCYTES 1 %; MONOCYTES 7 %; MONOCYTES ABSOLUTE (CALC) 0.62 10/3/uL (0.21-1.20); NEUTROPHILS ABSOLUTE (CALC) 6.78 10/3/uL (2.02-8.40); PLATELET ESTIMATE ADQ (ADEQUATE); POLYCHROMASIA 1+ (2-5/OIF) (0-1/OIF); SEGMENTED NEUTROPHIL (0) 67 %; TOTAL NUCLEATED CELLS 100; TOXIC GRANULATION SLT; VACUOLATED NEUTROPHILES OCC
[2016-09-15 06:48] LABS: TEARDROP SHAPED RBCS OCC (0-2/OIF)
[2016-09-16 04:15] LABS: BASOPHILS 0.4 %; BASOPHILS ABSOLUTE 0.03 10/3/uL (0.0-0.16); EOSINOPHILS 1.1 %; EOSINOPHILS ABSOLUTE 0.09 10/3/uL (0.0-0.53); HEMOGLOBIN 10.3 g/dL (13.6-17.8); IMMATURE GRANULOCYTES 0.6 %; IMMATURE GRANULOCYTES ABSOLUTE 0.05 10/3/uL (0.0-0.11); LYMPHOCYTES 13.4 %; LYMPHOCYTES ABSOLUTE 1.12 10/3/uL (0.67-4.30); MEAN CORPUS HGB CONC 34.2 g/dL (32.0-36.0); MEAN CORPUSCULAR HEMOGLOB 30.9 pg (26.0-34.0); MEAN CORPUSCULAR VOLUME 90.4 fL (80-100); MEAN PLATELET VOLUME 9.8 fL (9.2-13.0); MONOCYTES 7.1 %; MONOCYTES ABSOLUTE 0.59 10/3/uL (0.21-1.20); NEUTROPHILS 77.4 %; NEUTROPHILS ABSOLUTE 6.48 10/3/uL (2.02-8.40); PLATELET COUNT 235 10/3/uL (150-400); RED CELL COUNT 3.33 10/6/uL (4.7-6.1); WHITE BLOOD CELLS 8.4 10/3/uL (4.5-10.5)
[2016-09-16 04:16] LABS: HEMATOCRIT 30.1 % (40.0-51.0); MANUAL DIFF NO %
[2016-09-16 04:30] LABS: INTERNATIONAL NORMAL RATI 2.1 UNITS (-)
[2016-09-16 04:34] LABS: PROTIME (NOT ORD) 23.1 SEC (12.0-14.5)
[2016-09-16 04:38] LABS: A/G RATIO 0.4 (0.7-1.9); ALBUMIN 1.6 G/DL (3.5-5.0); CALCIUM, SERUM 8.1 MG/DL (8.5-10.4); CHLORIDE, SERUM 98 MMOL/L (96-112); CO2 (CARBON DIOXIDE) 30 MMOL/L (24-34); CREATININE 1.17 MG/DL (0.70-1.30); GFR AFRICAN AMERICAN 66 ML/MIN (>=60); GFR NON AFRICAN AMERICAN 57 ML/MIN (>=60); GLOBULIN 4.5 G/DL (2.5-4.1); GLUCOSE, SERUM 109 MG/DL (60-99); POTASSIUM, SERUM 3.1 MMOL/L (3.5-5.3); SGOT(AST) 49 U/L (5-40); SGPT(ALT) 20 U/L (5-65); SODIUM, SERUM 139 MMOL/L (135-148); TOTAL PROTEIN 6.1 G/DL (6.0-8.5)
[2016-09-16 04:39] LABS: ALKALINE PHOSPHATASE 66 U/L (45-117); BUN (BLOOD UREA NITROGEN) 22 MG/DL (6-23); PHOSPHORUS, SERUM 2.9 MG/DL (2.5-4.5); TOTAL BILIRUBIN 0.7 MG/DL (0-1.2)
[2016-09-16 21:50] LABS: BE (BASE EXCESS) 3.6 MEQ/L (0 +/- 2.5); DEVICE NRB; HCO3 (ACTUAL BICARBONATE) 27.8 MEQ/L (23-27); INSTRUMENT SERIAL # 8083; METHEMOGLOBIN 0.2 % (0-3); PCO2 (CO2 TENSION) 40 MMHG (35-45); PO2 (O2 TENSION) 122 MMHG (79-93); SAMPLE Arterial; pH 7.46 (7.37-7.43)
[2016-09-16 21:51] LABS: ALLENS TEST Pos
[2016-09-17 04:33] LABS: BASOPHILS 0.2 %; BASOPHILS ABSOLUTE 0.02 10/3/uL (0.0-0.16); EOSINOPHILS 1.2 %; EOSINOPHILS ABSOLUTE 0.11 10/3/uL (0.0-0.53); HEMATOCRIT 29.6 % (40.0-51.0); IMMATURE GRANULOCYTES 0.4 %; IMMATURE GRANULOCYTES ABSOLUTE 0.04 10/3/uL (0.0-0.11); LYMPHOCYTES 13.7 %; LYMPHOCYTES ABSOLUTE 1.28 10/3/uL (0.67-4.30); MEAN CORPUS HGB CONC 33.8 g/dL (32.0-36.0); MEAN CORPUSCULAR HEMOGLOB 30.9 pg (26.0-34.0); MEAN CORPUSCULAR VOLUME 91.4 fL (80-100); MEAN PLATELET VOLUME 9.6 fL (9.2-13.0); MONOCYTES 6.1 %; MONOCYTES ABSOLUTE 0.57 10/3/uL (0.21-1.20); NEUTROPHILS 78.4 %; NEUTROPHILS ABSOLUTE 7.31 10/3/uL (2.02-8.40); PLATELET COUNT 209 10/3/uL (150-400); RED CELL COUNT 3.24 10/6/uL (4.7-6.1); WHITE BLOOD CELLS 9.3 10/3/uL (4.5-10.5)
[2016-09-17 04:34] LABS: MANUAL DIFF NO %
[2016-09-17 04:43] LABS: INTERNATIONAL NORMAL RATI 2.8 UNITS (-)
[2016-09-17 04:47] LABS: ALBUMIN 1.7 G/DL (3.5-5.0); BUN (BLOOD UREA NITROGEN) 25 MG/DL (6-23); CALCIUM, SERUM 8.5 MG/DL (8.5-10.4); CHLORIDE, SERUM 100 MMOL/L (96-112); CO2 (CARBON DIOXIDE) 28 MMOL/L (24-34); CREATININE 1.63 MG/DL (0.70-1.30); GFR AFRICAN AMERICAN 44 ML/MIN (>=60); GFR NON AFRICAN AMERICAN 38 ML/MIN (>=60); GLUCOSE, SERUM 118 MG/DL (60-99); POTASSIUM, SERUM 3.6 MMOL/L (3.5-5.3); SODIUM, SERUM 137 MMOL/L (135-148)
[2016-09-18 05:21] LABS: BASOPHILS 0.3 %; BASOPHILS ABSOLUTE 0.03 10/3/uL (0.0-0.16); EOSINOPHILS 1.4 %; EOSINOPHILS ABSOLUTE 0.13 10/3/uL (0.0-0.53); HEMATOCRIT 29.9 % (40.0-51.0); HEMOGLOBIN 10.1 g/dL (13.6-17.8); IMMATURE GRANULOCYTES 0.3 %; IMMATURE GRANULOCYTES ABSOLUTE 0.03 10/3/uL (0.0-0.11); LYMPHOCYTES ABSOLUTE 0.95 10/3/uL (0.67-4.30); MEAN CORPUS HGB CONC 33.8 g/dL (32.0-36.0); MEAN CORPUSCULAR HEMOGLOB 31.1 pg (26.0-34.0); MEAN PLATELET VOLUME 9.5 fL (9.2-13.0); MONOCYTES 6.1 %; MONOCYTES ABSOLUTE 0.58 10/3/uL (0.21-1.20); NEUTROPHILS 81.9 %; NEUTROPHILS ABSOLUTE 7.74 10/3/uL (2.02-8.40); PLATELET COUNT 210 10/3/uL (150-400); RED CELL COUNT 3.25 10/6/uL (4.7-6.1); WHITE BLOOD CELLS 9.5 10/3/uL (4.5-10.5)
[2016-09-18 05:22] LABS: MANUAL DIFF NO %
[2016-09-18 05:28] LABS: INTERNATIONAL NORMAL RATI 3.8 UNITS (-); PROTIME (NOT ORD) 36.8 SEC (12.0-14.5)
[2016-09-18 05:40] LABS: A/G RATIO 0.3 (0.7-1.9); ALBUMIN 1.6 G/DL (3.5-5.0); ALKALINE PHOSPHATASE 70 U/L (45-117); CALCIUM, SERUM 8.3 MG/DL (8.5-10.4); CHLORIDE, SERUM 102 MMOL/L (96-112); CO2 (CARBON DIOXIDE) 27 MMOL/L (24-34); CREATININE 1.74 MG/DL (0.70-1.30); GFR AFRICAN AMERICAN 41 ML/MIN (>=60); GFR NON AFRICAN AMERICAN 35 ML/MIN (>=60); GLOBULIN 4.7 G/DL (2.5-4.1); GLUCOSE, SERUM 95 MG/DL (60-99); PHOSPHORUS, SERUM 3.4 MG/DL (2.5-4.5); POTASSIUM, SERUM 4.2 MMOL/L (3.5-5.3); SGOT(AST) 51 U/L (5-40); SGPT(ALT) 21 U/L (5-65); SODIUM, SERUM 137 MMOL/L (135-148); TOTAL BILIRUBIN 0.4 MG/DL (0-1.2); TOTAL PROTEIN 6.3 G/DL (6.0-8.5)
[2016-09-18 05:45] LABS: BUN (BLOOD UREA NITROGEN) 30 MG/DL (6-23)
== END 2016-09-18 19:51 | disposition hospice, home (50) | DRG 314 ==
LOC: ER 10:43 → 7NO 16:02 → IMCU 09-12 08:47 → MIC 09-12 12:06 → IMCU 09-16 15:00
PROVIDERS: Hospitalist; Internal Medicine; Internal Medicine Critical Care Medicine; Internal Medicine Pulmonary Disease; Student in an Organized Health Care Education/Training Program
DX: T82.6XXA Infection and inflammatory reaction due to cardiac valve prosthesis, initial encounter (principal); J96.01 Acute respiratory failure with hypoxia; A41.9 Sepsis, unspecified organism; G93.41 Metabolic encephalopathy; N17.9 Acute kidney failure, unspecified; I95.9 Hypotension, unspecified; I33.0 Acute and subacute infective endocarditis; E87.1 Hypo-osmolality and hyponatremia; I48.91 Unspecified atrial fibrillation; Z51.5 Encounter for palliative care; I49.5 Sick sinus syndrome; E86.0 Dehydration; Z95.2 Presence of prosthetic heart valve; I25.10 Atherosclerotic heart disease of native coronary artery without angina pectoris; R62.7 Adult failure to thrive; E78.5 Hyperlipidemia, unspecified; Z79.01 Long term (current) use of anticoagulants; Z79.899 Other long term (current) drug therapy; Z95.0 Presence of cardiac pacemaker; Z95.1 Presence of aortocoronary bypass graft; Z88.0 Allergy status to penicillin; Z88.1 Allergy status to other antibiotic agents; I08.3 Combined rheumatic disorders of mitral, aortic and tricuspid valves; B95.4 Other streptococcus as the cause of diseases classified elsewhere; N40.0 Benign prostatic hyperplasia without lower urinary tract symptoms
CPT/HCPCS: 31720; 36569; 36600; 70450; 71010; 71250; 74000; 74176; 74177; 80048; 80053; 80069; 80202; 81001; 82140; 82150; 82330; 82805; 83605; 83690; 83735; 83880; 84100; 84132; 84145; 84439; 84443; 84484; 85025; 85610; 85730; 87040; 87070; 87077; 87150; 87186; 87205; 87641; 92610-GN; 92960; 93005; 93312; 93320; 93325; 94002; 94003; 94640; 94660; 94667; 94668; 96374; 97110-GO; 97162-GP; 97164-GP; 97165-GO; 97168-GO; 97530-GP; 99291; A9270-GY; C1751; C9113; G8978-CL-GP; G8978-CM-GP; G8979-CK-GP; G8987-CL-GO; G8988-CK-GO; G8996-CJ-GN; G8996-CN-GN; G8997-CJ-GN; G8997-CN-GN; G8998-CJ-GN; G8998-CN-GN; J0282; J0330; J0692; J1630; J1940; J2370; J3010; J3370; J3486; Q9967

== ENCOUNTER 2016-09-18 20:01 | Inpatient (IN) | payer OTHER ==
--- NOTE | ~2016-09-18 | DS ---
Discharge Summary [facility] [address] [place]. [address] NAME: REY MAIER : 34 STATUS : DIS IN PAT#: [id number] AGE: 86 ADM/REG DATE : 09/18/16 MR#: [id number] REPORT SERV DATE: 10/03/16 DICTATED BY: ZANE BOYD DATE: 10/02/16 REPORT STATUS : Draft TRANSCRIBED BY: MODL DATE: 10/02/16 ADMISSION DATE: 09/18/2016 DISCHARGE DATE: 09/19/2016 DATE OF ORIGINAL ADMISSION: 09/05/2016. DATE OF TRANSFER TO [facility]: 09/18/2016. DATE OF : 09/19/2016. HISTORY OF PRESENT ILLNESS AND HOSPITAL COURSE: The patient is an 86-year-old, admitted on 09/05/2016 with worsening weakness, unable to get up off the toilet. He had AFib which is status post ablation. He has also had a pacemaker. He has coronary artery disease with a CABG. He has had a mitral valve repair. He recently completed rehab for an ankle fracture. He came in, and after a period of time, he was discovered to have endocarditis and continued to decline. Palliative Care saw him on 09/18/2016 for agitation and pain and recommended hospice which was done that evening. The patient at 0526 hours the following morning before I could see him. FINAL DIAGNOSES: Endocarditis, on replaced mitral valve along with coronary artery disease; acute kidney injury; hypertension; and atrial fibrillation. GP/MODL Zane Boyd MD / [id number] CC: Zane Boyd MD
[~2016-09-18 20:01] MED LIST changes: +ACET500CAP PO; +CARTIA XT180 MG/24 PO; +JANTOVEN5 MG PO; +MULTIVITAMI1 PO; +NORCO1 TA1 PO
== END 2016-09-19 06:39 | disposition expired | DRG 314 ==
LOC: IMCU 20:01
DX: T82.6XXA Infection and inflammatory reaction due to cardiac valve prosthesis, initial encounter (principal); J96.01 Acute respiratory failure with hypoxia; G93.41 Metabolic encephalopathy; N17.9 Acute kidney failure, unspecified; I95.9 Hypotension, unspecified; E87.1 Hypo-osmolality and hyponatremia; I48.91 Unspecified atrial fibrillation; I49.5 Sick sinus syndrome; E86.0 Dehydration; B95.4 Other streptococcus as the cause of diseases classified elsewhere; I33.0 Acute and subacute infective endocarditis; Z95.2 Presence of prosthetic heart valve; I25.10 Atherosclerotic heart disease of native coronary artery without angina pectoris; R62.7 Adult failure to thrive; E78.5 Hyperlipidemia, unspecified; Z79.01 Long term (current) use of anticoagulants; Z79.899 Other long term (current) drug therapy; Z95.0 Presence of cardiac pacemaker; Z95.1 Presence of aortocoronary bypass graft; Z88.0 Allergy status to penicillin; I08.3 Combined rheumatic disorders of mitral, aortic and tricuspid valves; N40.0 Benign prostatic hyperplasia without lower urinary tract symptoms
CPT/HCPCS: J1630